=== PATIENT | male | born 1965 | race Caucasian/White ===

== ENCOUNTER 2020-02-27 15:21 | Emergency (ER) | payer BC ==
[~2020-02-27] VITALS: Ht 170.2 cm; Wt 68.0 kg
[2020-02-27 15:26] VITALS: BP 129/79; Ht 170.2 cm; Wt 68.0 kg
== END 2020-02-27 17:18 | disposition home or self-care (01) ==
LOC: ED 15:21
DX: H81.399 Other peripheral vertigo, unspecified ear (principal); H81.09 Meniere's disease, unspecified ear